=== PATIENT | male | born 1940 | race Caucasian/White ===

== ENCOUNTER 2020-01-27 12:36 | Inpatient (IN) ==
[2020-01-27 13:17] LABS: Urine Appearance Clear (Clear); Urine Color Yellow (Yellow)
[2020-01-27 13:18] LABS: Bilirubin,Urine 2+ mg/dL (Negative); Blood, Urine Negative (Negative); Glucose,Urine (UA) Negative (Negative); Ketones,Urine Negative (Negative); Nitrite,Urine Negative (Negative); Protein,Urine 30 MG/DL; Urine Specific Gravity 1.035 (1.001-1.035)
[2020-01-27 13:19] LABS: Bacteria,Urine Rare /HPF (Few); Hyaline Casts,Urine Rare /LPF (0-3); RBC,Urine 0-1 /HPF (0-4); Squamous Epithelial Cell,Urine Few /HPF (0-10); WBC,Urine 0-2 /HPF (0-6)
[2020-01-27 13:28] LABS: Basophils % 0.1 % (0.0-0.8); Eosinophils % 0.1 % (0.00-10.9); Hematocrit 49.6 VOL% (42.0-52.0); Hemoglobin 16.5 GM/DL (14.0-18.0); Immature Granulocytes % 0.4 %; Immature Granulocytes Absolute 0.06 #; Lymphocytes # 1.4 10*3/uL (1.4-4.0); Lymphocytes % 9.4 % (21.2-54.2); Mean Corpuscular HGB Conc 33.3 GM/DL (32-36); Mean Corpuscular Volume 87.5 FL (87-102); Mean Platelet Volume 9.2 FL (9.6-12.0); Monocytes % 10.4 % (1.7-12.7); Neutrophils % 79.6 % (38.7-73.9); Platelet Count 461 T/CUMM (130-400); Red Blood Count 5.67 MC/CUMM (3.8-5.5); Red Cell Distribution Width 12.8 % (9.3-17.3); White Blood Count 14.8 T/CUMM (4-12)
[2020-01-27 13:44] LABS: Albumin 3.8 G/DL (3.4-5.0); Bilirubin,Total 0.6 MG/DL (0.2-1.0); Calcium 9.2 MG/DL (8.5-10.1); Osmolality,Calculated 281.1 MOS/KG (273-304); Total Protein 7.8 G/DL (6.4-8.3)
[2020-01-27] MEDS ORDERED: SODIUM CHLORIDE 0.9% 1,000 ML IV STA (14:52)
[2020-01-27] MEDS ORDERED: ACETAMINOPHEN 325 MG TABLET PO PRN (15:20)
[2020-01-27 16:12] LABS: Ferritin 112.6 ng/ml (26-388)
[2020-01-27] MEDS ORDERED: INFLUENZA VIRUS VACCINE 0.5 ML SYRINGE IM ONE (17:24)
[2020-01-27] MEDS: PANTOPRAZOLE 40 MG TABLET PO SCH (17:40)
[2020-01-27] MEDS: SODIUM CHLORIDE 0.9% 1,000 ML IV SCH (18:20)
[2020-01-27] MEDS: DOCUSATE SODIUM 100 MG CAPSULE PO SCH (21:24)
[2020-01-27] MEDS: FERROUS SULFATE 325 MG TABLET PO SCH (21:24)
[2020-01-27] MEDS: ATORVASTATIN 20 MG TABLET PO SCH (21:24)
[2020-01-27] MEDS: DILTIAZEM CD 180 MG CAPSULE PO SCH (21:25)
[2020-01-28] MEDS: ONDANSETRON 4 MG/2 ML VIAL IV PRN (03:06)
[2020-01-28] MEDS: SODIUM CHLORIDE 0.9% 1,000 ML IV SCH ×2 (05:24→07:27)
[2020-01-28] MEDS ORDERED: PANTOPRAZOLE 40 MG VIAL IV ONE (05:42)
[2020-01-28 06:37] LABS: Basophils % 0.1 % (0.0-0.8); Eosinophils # 0.1 10*3/uL (0.0-0.87); Eosinophils % 0.9 % (0.00-10.9); Hematocrit 41.3 VOL% (42.0-52.0); Hemoglobin 13.9 GM/DL (14.0-18.0); Immature Granulocytes % 0.3 %; Immature Granulocytes Absolute 0.03 #; Lymphocytes % 9.9 % (21.2-54.2); Mean Corpuscular HGB Conc 33.7 GM/DL (32-36); Mean Corpuscular Volume 87.7 FL (87-102); Mean Platelet Volume 9.6 FL (9.6-12.0); Neutrophils % 79.8 % (38.7-73.9); Platelet Count 340 T/CUMM (130-400); Red Blood Count 4.71 MC/CUMM (3.8-5.5); Red Cell Distribution Width 12.9 % (9.3-17.3); White Blood Count 9.7 T/CUMM (4-12)
[2020-01-28 06:55] LABS: Bilirubin,Total 0.9 MG/DL (0.2-1.0); Calcium 8.3 MG/DL (8.5-10.1); Osmolality,Calculated 283.7 MOS/KG (273-304); Total Protein 6.3 G/DL (6.4-8.3)
[2020-01-28] MEDS: DOCUSATE SODIUM 100 MG CAPSULE PO SCH ×2 (09:44→20:57)
[2020-01-28] MEDS: POLYETHYLENE GLYCOL POWDER 17 GM PACK PO SCH (09:44)
[2020-01-28] MEDS: PANTOPRAZOLE 40 MG TABLET PO SCH (09:44)
[2020-01-28] MEDS: ASPIRIN EC 81 MG TABLET PO SCH (09:44)
[2020-01-28] MEDS: FERROUS SULFATE 325 MG TABLET PO SCH ×2 (09:44→20:56)
[2020-01-28] MEDS: amLODIPine 10 MG TABLET PO SCH (09:45)
[2020-01-28] MEDS: BISACODYL 10 MG SUPP RECTAL SCH ×2 (09:50→20:40)
[2020-01-28] MEDS ORDERED: SODIUM PHOSPHATE ENEMA 133 ML BOTTLE RECTAL ONE (12:00)
[2020-01-28] MEDS: PANTOPRAZOLE 40 MG VIAL IV SCH (12:26)
[2020-01-28] MEDS: DILTIAZEM CD 180 MG CAPSULE PO SCH (20:56)
[2020-01-28] MEDS: ATORVASTATIN 20 MG TABLET PO SCH (20:57)
[2020-01-29] MEDS: SODIUM CHLORIDE 0.9% 1,000 ML IV SCH ×3 (01:52→23:58)
[2020-01-29 06:00] LABS: Basophils % 0.3 % (0.0-0.8); Eosinophils # 0.1 10*3/uL (0.0-0.87); Eosinophils % 1.8 % (0.00-10.9); Hematocrit 39.4 VOL% (42.0-52.0); Hemoglobin 13.2 GM/DL (14.0-18.0); Immature Granulocytes % 0.1 %; Immature Granulocytes Absolute 0.01 #; Lymphocytes # 1.2 10*3/uL (1.4-4.0); Lymphocytes % 17.3 % (21.2-54.2); Mean Corpuscular HGB Conc 33.5 GM/DL (32-36); Mean Corpuscular Volume 88.3 FL (87-102); Mean Platelet Volume 8.6 FL (9.6-12.0); Monocytes % 11.8 % (1.7-12.7); Neutrophils % 68.7 % (38.7-73.9); Platelet Count 345 T/CUMM (130-400); Red Blood Count 4.46 MC/CUMM (3.8-5.5); Red Cell Distribution Width 12.5 % (9.3-17.3); White Blood Count 7.2 T/CUMM (4-12)
[2020-01-29 06:34] LABS: Eosinophils 2 % (0-10); Lymphocytes 15 % (20-55); Platelet Estimate Normal; Segmented Neutrophils 75 % (50-85); Total Cells Counted 100
[2020-01-29 06:49] LABS: Calcium 8.5 MG/DL (8.5-10.1); Osmolality,Calculated 280.7 MOS/KG (273-304)
[2020-01-29] MEDS: PANTOPRAZOLE 40 MG VIAL IV SCH (09:25)
[2020-01-29] MEDS: amLODIPine 10 MG TABLET PO SCH (09:27)
[2020-01-29] MEDS: DOCUSATE SODIUM 100 MG CAPSULE PO SCH ×2 (09:27→21:23)
[2020-01-29] MEDS: POLYETHYLENE GLYCOL POWDER 17 GM PACK PO SCH (09:27)
[2020-01-29] MEDS: ASPIRIN EC 81 MG TABLET PO SCH (09:27)
[2020-01-29] MEDS: FERROUS SULFATE 325 MG TABLET PO SCH ×2 (09:27→21:24)
[2020-01-29] MEDS: ALUMINUM/MAGNES/SIMETH MAX STR 30 ML UDCUP PO PRN ×3 (09:29→21:17)
[2020-01-29] MEDS: ONDANSETRON 4 MG/2 ML VIAL IV PRN (09:33)
[2020-01-29] MEDS: BISACODYL 10 MG SUPP RECTAL SCH ×2 (12:01→21:24)
[2020-01-29] MEDS ORDERED: ENOXAPARIN 40 MG/0.4 ML SYRINGE SUBCUT SCH (14:00)
[2020-01-29] MEDS: DILTIAZEM CD 180 MG CAPSULE PO SCH (21:17)
[2020-01-29] MEDS: ATORVASTATIN 20 MG TABLET PO SCH (21:17)
[2020-01-30 05:35] LABS: Basophils % 0.6 % (0.0-0.8); Eosinophils % 0.4 % (0.00-10.9); Hematocrit 41.1 VOL% (42.0-52.0); Hemoglobin 13.9 GM/DL (14.0-18.0); Immature Granulocytes % 0.6 %; Immature Granulocytes Absolute 0.04 #; Lymphocytes # 0.7 10*3/uL (1.4-4.0); Lymphocytes % 10.1 % (21.2-54.2); Mean Corpuscular HGB Conc 33.8 GM/DL (32-36); Mean Corpuscular Volume 85.8 FL (87-102); Monocytes % 17.4 % (1.7-12.7); Neutrophils % 70.9 % (38.7-73.9); Platelet Count 327 T/CUMM (130-400); Red Blood Count 4.79 MC/CUMM (3.8-5.5); Red Cell Distribution Width 12.3 % (9.3-17.3); White Blood Count 7.1 T/CUMM (4-12)
[2020-01-30 05:55] LABS: Calcium 8.2 MG/DL (8.5-10.1); Osmolality,Calculated 283.4 MOS/KG (273-304)
[2020-01-30 06:01] LABS: Band Neutrophils 3 % (0-10); Eosinophils 1 % (0-10); Lymphocytes 6 % (20-55); Platelet Estimate Adequate; Segmented Neutrophils 79 % (50-85); Total Cells Counted 100
[2020-01-30] MEDS: SODIUM CHLORIDE 0.9% 1,000 ML IV SCH ×2 (06:15→13:30)
[2020-01-30] MEDS: BISACODYL 10 MG SUPP RECTAL SCH (08:19)
[2020-01-30] MEDS: POLYETHYLENE GLYCOL POWDER 17 GM PACK PO SCH (10:32)
[2020-01-30] MEDS: DOCUSATE SODIUM 100 MG CAPSULE PO SCH (10:32)
[2020-01-30] MEDS: ASPIRIN EC 81 MG TABLET PO SCH (10:32)
[2020-01-30] MEDS: FERROUS SULFATE 325 MG TABLET PO SCH ×2 (10:33→10:37)
[2020-01-30] MEDS: amLODIPine 10 MG TABLET PO SCH (10:33)
[2020-01-30] MEDS: PANTOPRAZOLE 40 MG VIAL IV SCH (10:33)
[2020-01-30 12:12] VITALS: BP 120/71
== END 2020-01-30 13:20 | disposition home or self-care (01) | DRG 389 ==
LOC: N.ED 12:36 → N.EDINP 12:36 → N.3E 16:43
PROVIDERS: ADMIT Internal Medicine; ATTEND Internal Medicine